=== PATIENT | female | born 1950 | race African-American/Black ===

== ENCOUNTER 2025-01-14 14:31 | Emergency (ER) | payer MEDICARE, OTHER ==
[~2025-01-14] VITALS: Ht 162.6 cm; Wt 59.0 kg
[~2025-01-14 14:31] MED LIST: ACET650S25 PO; AMLO5TAB5 PO; ATOR10TA PO; ECOTRIN PO
[2025-01-14 14:35] VITALS: O2SAT 96
[2025-01-14 14:56] VITALS: BP 124/74; PULSE 110; RESP 12; TEMP 36.7; O2SAT 99
[2025-01-14] MEDS ORDERED: DIPHENHYDRAMINE 25MG CAPSULE PO ONE (15:45)
[2025-01-14] MEDS: DIPHENHYDRAMINE 25MG CAPSULE PO NR (16:00)
[2025-01-14] MEDS ORDERED: DIPH-1207 MT (16:36)
== END 2025-01-14 17:19 | disposition home or self-care (01) ==
LOC: ER 14:31
DX: T78.1XXA Other adverse food reactions, not elsewhere classified, initial encounter (principal); Z79.899 Other long term (current) drug therapy; Z98.890 Other specified postprocedural states; X58.XXXA Exposure to other specified factors, initial encounter
CPT/HCPCS: 99282; Q0163